=== PATIENT | male | born 1980 | race Caucasian/White ===

== ENCOUNTER 2020-10-14 16:57 | Emergency (ER) | payer MEDICAID ==
[~2020-10-14] VITALS: Ht 177.8 cm; Wt 87.0 kg
--- NOTE | 2020-10-14 17:09 | NUR ---
[facility] AFTER BEING FOUND BY [facility]. PT WITH STRONG ETOH ODOR. PER EMS PT WAS SEEN AT [facility] YESTERDAY FOR ETOH AND EMOTIONAL CRISIS. PER EMS PT ABLE TO WALK. PT REFUSING TO TALK TO RN. PT ON SIDE, MULTIPLE REQUESTS MADE BEFORE PT MOVED ON BACK TO GET VITALS. PT REFUSING TO NOD OR SHAKE HEAD TO "YES" AND "NO" QUESTIONS WELL. PT HAS NO CC BESIDES WHAT EMS REPORTED. PT RESTING WITH EYES CLOSED, REFUSING TO ANSWER ANY QUESTIONS. BLOOD SUGAR FROM EMS [id number].
[2020-10-14 18:00] VITALS: BP 100/51
[2020-10-14] MEDS ORDERED: THIAMINE 100MG TABLET PO ONE (18:00)
--- NOTE | 2020-10-14 19:29 | NUR ---
pt still sleeping. resp even and unlabored
--- NOTE | 2020-10-14 19:43 | NUR ---
pt not found to be in room, pt eloped. dr harris aware.
== END 2020-10-14 19:45 | disposition left against medical advice (07) ==
LOC: ED 19:39
DX: F10.120 Alcohol abuse with intoxication, uncomplicated (principal); Y90.0 Blood alcohol level of less than 20 mg/100 ml
CPT/HCPCS: 99283

== ENCOUNTER 2020-10-22 20:21 | Emergency (ER) | payer MEDICAID ==
[~2020-10-22] VITALS: Ht 177.8 cm; Wt 79.3 kg
[2020-10-22 20:31] VITALS: BP 139/94
== END 2020-10-23 04:14 | disposition left against medical advice (07) ==
LOC: ED 23:40
DX: G31.2 Degeneration of nervous system due to alcohol (principal); F15.129 Other stimulant abuse with intoxication, unspecified; Z72.9 Problem related to lifestyle, unspecified; R00.0 Tachycardia, unspecified; F17.210 Nicotine dependence, cigarettes, uncomplicated
CPT/HCPCS: 99283